=== PATIENT | female | born 1955 | race Caucasian/White ===

== ENCOUNTER → 2017-08-09 | Day surgery (SDC) | payer OTHER ==
[~2017-08-09] VITALS: Ht 170.2 cm; Wt 90.7 kg
[~2017-08-09] MED LIST: AUGMENTIN 875 M1 TAB PO; IBUPROFEN200 M3 PO; LEVOTHYROXINE25 MCG PO; PREDNICOT10 MG PO; PREDNISONE10 MG PO; ROBAXIN-750750 MG; SIMVASTATIN10 M1 PO; SYNTHROID0.025 MG PO; TYLENOL #31 TAB PO; VITAMIN D2000 UNIT PO; VITAMIN D32000 I1 PO; ZOCOR10 MG PO
--- NOTE | 2017-08-11 11:00 | Operative Report ---
Operative/Inv Procedure Report Surgery Date: 08/09/17 Name of Procedure: Excision of left femoral lymph node Pre-Operative Diagnosis: Lymphadenopathy Post-Operative Diagnosis: Same Estimated Blood Loss: scant Surgeon/Drug Abuse Technician: iNr GARCIA,Grabiel Samano Anesthesia: local monitored anesthesi Operative/Procedure Note Note: Patient was positioned supine on the OR table after successful induction of general anesthesia and timeouts and antibiotics, an oblique incision was planned over the palpable node in the left femoral region was first infiltrated local anesthetic before making the incision which was about 3 cm long this was deepened with cautery through the superficial fascia and then deeper near the vessels and elongated lobulated still connected lymph node was dissected out and from deeper lymph nodes and excised it was over 4 cm long cautery was used for hemostasis we did not have to suture any vessels. As irrigated closed back up in layers with multiple interrupted first 3-0 Vicryl sutures followed by 4-0 Monocryl subcuticular for the skin itself followed by Mastisol Steri-Strips Telfa and Tegaderm. EBL minimal lap and sponge counts correct wound expectancy clean IV fluids crystalloid complications none patient tolerated the procedure well was awakened and returned to recovery room in satisfactory condition.
== END ==
LOC: STS 01:28
DX: R59.0 Localized enlarged lymph nodes (principal); D86.9 Sarcoidosis, unspecified; E07.9 Disorder of thyroid, unspecified
CPT/HCPCS: J0690; J2250